=== PATIENT | female | born 1995 | race African-American/Black ===

== ENCOUNTER 2016-09-01 12:29 | Emergency (ER) | payer MEDICAID ==
[~2016-09-01 12:29] MED LIST: ACYC1CAP16 PO; ACYC400T PO; AUGM500T7 PO; METR-1 PO; MUPI2%T TOP; VIST25CA PO
[2016-09-01] MEDS ORDERED: CALNTAB (12:57)
--- NOTE | 2016-09-01 13:04 | PD ---
HPI Chief Complaint Abdominal pain Date Seen: Sep 01, 2016 Time Seen: 12:50 Travel History International Travel<30 Days: No Contact w/Intl Traveler<30Days: No Known Affected Area: No History of Present Illness HPI 20-year-old at 33 weeks and 6 days of gestation, EDC 10/14/16, patient presents to OB ED complaining of abdominal pain, patient stated that pain is located on the left side of the abdomen, pain score is 7/10, pain comes and goes , no nausea, no vomiting, fever or chills. Patient denies contractions, leakage of fluid, vaginal bleeding. She reports presence of movement. care is with the office of Talia Ellis. course is unremarkable. Bedside ultrasound is performed which shows fetus kicking the the mother and the abdomen in the area where pain is located. Placenta posterior. Para: 0 : 1 Miscarriage: 0 : 0 History Past Medical History Narrative Medical Denies Medical History: Denies Significant Hx Obstetric History Obstetric History Primigravida Past Surgical History Narrative Surgical Denies Surgical History: No Previous Surgery Family History Narrative Family History Grandmother with hypertension and diabetes Social History Alcohol Use: No Tobacco Use: No Substance Abuse: No Allergies-Medications (Allergen,Severity, Reaction): Coded Allergies: No Known Allergies (Verified , 09/01/16) Home Meds Reported Medications Vitamin (Calna)1 Tab Tab 09/01/16 Discontinued Scripts Amoxicillin-Clavulanate (Augmentin)500-125 mg [id number] Mg PO BID 10 Days Ref 0 Prov:Jaswinder Velasquez MD 06/22/16 Zovirax 200 M200 Mg 200 Mg [id number] Mg PO 5 TIMES A DAY PRN (herpes infection) # 25 CAP Ref 6 Prov:Gladys Sharpe MD 05/08/16 Hydroxyzine Pamoate (Vistaril)25 Mg Cap25 Mg PO Q6H PRN (ITCHING) #15 CAP Prov:Josh Ryder MD 01/08/16 Mupirocin 2% Cream (15gm) (Bactroban 2% Cream (15gm))15 Gm Cr1 Applic TOP TID # 1 GRAMS APPLY TO AFFECTED AREA Prov:Josh Ryder MD 01/08/16 [id number] M1 400 Mg Tab1 Tab PO 3 TIMES A DAY 7 Days Prov:Efraín Becerril DO 12/09/15 Metronidazole (Flagyl)500 Mg [id number] Mg PO Q12HR 7 Days Prov:Felipe Hutton MD 12/05/15 Review of Systems Except as stated in HPI: all other systems reviewed are Neg Gastrointestinal: Abdominal Pain Physical Exam Narrative GENERAL: Well-nourished, well-developed patient. SKIN: Warm and dry. HEAD: Normocephalic and atraumatic. EYES: No scleral icterus. No injection or drainage. ENT: No nasal drainage noted. Mucous membranes pink. Airway patent. NECK: Supple, trachea midline. No JVD. CARDIOVASCULAR: Regular rate and rhythm without murmurs, gallops, or rubs. RESPIRATORY: Breath sounds equal bilaterally. No accessory muscle use. BREASTS: Bilateral exam showed no masses , no retractions, no nipple discharge. ABDOMEN/GI: Abdomen soft, gravid, non-tender, bowel sounds present, no rebound, no guarding Gravid to 34 weeks size Fundal Height: 34 cm GENITOURINARY: External Genitalia: intact and normal in appearance BUS glands: Normal Cervix: Close, long posterior Dilatation: Close Effacement: 30% Station: -3 Presentation: Cephalic Membranes: Intact Uterine Contractions: None FHT's: Category: one Baseline: 40s Reactive: Yes Variability: Moderate Decels: None EXTREMITIES: No cyanosis or edema. BACK: Nontender without obvious deformity. No CVA tenderness. NEUROLOGICAL: Awake and alert. Motor and sensory grossly within normal limits. Five out of 5 muscle strength in all muscle groups. Normal speech. Data Data Vital Signs Reviewed: Yes Orders Vital Signs (Adult) .ON ADMISSION (09/01/16 12:55) ^ Labor Status (09/01/16 12:55) Urinalysis - C+S If Indicated (09/01/16 12:55) ^ Non Stress Test (09/01/16 12:55) ^ Hydration (09/01/16 12:55) MDM Medical Record Reviewed: Yes Diagnosis Diagnosis: Primary Impression: 34 weeks gestation of Additional Impression: Abdominal pain affecting Disposition: 01 DISCHARGE HOME Condition: Stable Patient Instructions: Abdominal Pain in (ED), Early Labor Signs (ED) , General Instructions Additional Instructions: Return to labor and delivery if increased symptoms, cramping, contractions, leakage of fluids, vaginal bleeding or decreased movements. Drink plenty of fluids. Monitor kick counts. Keep your office appointment as scheduled. Pelvic rest. Take medications as prescribed. Departure Forms: Tests/Procedures Heriberto Manuel MD Sep 01, 2016 13:04
[2016-09-01 13:38] LABS: BACTERIA, URINE OCC /hpf; BLOOD, URINE TRACE (NEG); GLUCOSE,URINE NEG (NEG); KETONE, URINE NEG (NEG); MUCUS URINE FEW /lpf (OCC); NITRITE,URINE NEG (NEG); SQUAMOUS EPITHELIAL CELL URINE 10 /hpf (0-5); URINE COLOR YELLOW (YELLW/STRAW)
[2016-09-01 13:42] LABS: COMMENT (UR) CULT NOT INDICATED; CULTURE IF INDICATED CULT NOT INDICATED
== END 2016-09-01 13:16 | disposition home or self-care (01) ==
LOC: HOBED 12:29
DX: O26.93 Pregnancy related conditions, unspecified, third trimester (principal); R10.9 Unspecified abdominal pain; Z3A.34 34 weeks gestation of pregnancy
CPT/HCPCS: 76815; 81001

== ENCOUNTER 2016-11-13 10:11 | Emergency (ER) | payer MEDICAID ==
[~2016-11-13] VITALS: Ht 167.6 cm; Wt 98.0 kg
[~2016-11-13 10:11] MED LIST changes: -ACYC1CAP16 PO; -ACYC400T PO; -AUGM500T7 PO; +CALNTAB; -METR-1 PO; -MUPI2%T TOP; -VIST25CA PO
[2016-11-13 10:12] VITALS: BP 133/86; PULSE 70; RESP 16; TEMP 98.5; O2SAT 100
[2016-11-13] MEDS ORDERED: BACT800T5 PO (10:49)
[2016-11-13] MEDS ORDERED: CEPH-460 PO (10:49)
[2016-11-13] MEDS ORDERED: IBUP800T23 PO (10:49)
--- NOTE | 2016-11-13 10:49 | PD ---
HPI Chief Complaint: Skin Problem Time Seen by Provider: 10:47 Travel History International Travel<30 days: No Contact w/Intl Traveler<30days: No Traveled to known affect area: No History of Present Illness HPI 21-year-old female presents to the emergency Department with complaint of possible insect bites to the medial aspect of her left heel that it been there for 2 days. She said a while ago the same pustules were present and she went [facility] was told that she was bit by ants. She says they gave her an antibiotic and they did go away. She denies paresthesias, loss of sensation, decreased range of motion, decreased strength to the affected extremity. Denies fever, chills, nausea, vomiting. Has not taken any medications or treatments to alleviate her symptoms. Pain is aggravated with palpation. Up-to -date on tetanus vaccinations. Denies allergies. No other modifying factors or associated signs and symptoms. PFSH Past Medical History Developmental Delay: No Diminished Hearing: No Genitourinary: Yes (GENITAL HERPES) Integumentary: Yes (SCABIES) Immunizations Current: Yes ?: Not : 0 Social History Alcohol Use: No Tobacco Use: No Substance Use: Yes (MARIJUANA) Allergies-Medications (Allergen,Severity, Reaction): Coded Allergies: No Known Allergies (Verified , 11/13/16) Reported Meds & Prescriptions Reported Meds & Active Scripts Active Ibuprofen 800 Mg Tab 800 Mg PO Q6HR PRN Bactrim DS (Sulfamethoxazole-Trimethoprim) 800-160 Mg Tab 1 Tab PO BID 10 Days Keflex (Cephalexin) 500 Mg Cap 500 Mg PO Q6H 10 Days Review of Systems Except as stated in HPI: all other systems reviewed are Neg Physical Exam Narrative GENERAL: Well-nourished, well-developed female patient, in no acute distress; afebrile, nontoxic appearing SKIN: Warm and dry. Approximately 5 small pustules noted to the medial aspect of the left heel with surrounding erythema; area is warm to touch and tender to touch. Left lower extremity is supple and non-tense with 2+ pedal pulse and sensory intact. HEAD: Atraumatic. Normocephalic. EYES: Pupils equal and round. No scleral icterus. No injection or drainage. ENT: Mucosa pink and moist. Airway patent. NECK: Trachea midline. CARDIOVASCULAR: Regular rate. RESPIRATORY: No accessory muscle use. GASTROINTESTINAL: Rounded. MUSCULOSKELETAL: No obvious deformities. No clubbing. No cyanosis. No edema. NEUROLOGICAL: Awake and alert. Oriented 3. No obvious cranial nerve deficits. Motor grossly within normal limits. Normal speech. PSYCHIATRIC: Appropriate mood and affect; insight and judgment normal. Data Data Last Documented VS Vital Signs Date Time Temp Pulse Resp B/P Pulse Ox O2 Delivery O2 Flow Rate FiO2 11/13/16 10:12 98.5 70 16 133/86 100 Room Air MDM Medical Decision Making Medical Screen Exam Complete: Yes Emergency Medical Condition: Yes Medical Record Reviewed: Yes Differential Diagnosis Insect bites, cellulitis, nonspecific skin eruption Narrative Course 21-year-old female with possible insect bites to the medial aspect of her left heel with some surrounding cellulitis. Left lower extremity supplemented with 2 + pedal pulses and sensory intact. Patient is afebrile and nontoxic appearing. She denies fever, chills, nausea, vomiting. Up-to-date on her tetanus vaccination. Keflex, Bactrim, ibuprofen prescribed for home. Patient verbalizes understanding and agreement with treatment plan. Patient is medically cleared and stable for discharge. Discussed reasons to return to the emergency department. Instructed patient to follow up with primary care provider. Patient agrees with treatment plan. The patients vital signs are stable and the patient is stable for outpatient follow-up and treatment. Patient discharged home, stable and in no acute distress. Diagnosis Primary Impression: Cellulitis of foot excluding toe Referrals: Primary Care Physician Patient Instructions: Cellulitis (ED), General Instructions, Insect Bite or Sting (ED) Departure Forms: Tests/Procedures, Work Release Enter return to work date: Nov 14, 2016 Additional Instructions: Complete full course of antibiotics Warm compresses to the affected area Keep area clean and dry Ibuprofen or Tylenol as directed and as needed for pain and inflammation Follow-up with primary care provider Return to emergency department immediately with worsening of symptoms Med/Other Pt SpecificInfo: Prescription(s) given Scripts Ibuprofen 800 Mg [id number] Mg PO Q6HR PRN (PAIN) #30 TAB Ref 0 Prov:Corinna Humphrey BLENDER 11/13/16 Sulfamethoxazole-Trimethoprim (Bactrim DS)800-160 Mg Tab1 Tab PO BID 10 Days Ref 0 Prov:Corinna Humphrey BLENDER 11/13/16 Cephalexin (Keflex)500 Mg [id number] Mg PO Q6H 10 Days Ref 0 Prov:Corinna Humphrey 11/13/16 Disposition: 01 DISCHARGE HOME Condition: Stable Corinna Humphrey Nov 13, 2016 10:49
== END 2016-11-13 10:58 | disposition home or self-care (01) ==
LOC: NEPK 10:11
DX: L03.116 Cellulitis of left lower limb (principal); Z87.448 Personal history of other diseases of urinary system
CPT/HCPCS: 99282